=== PATIENT | male | born 1955 | race Caucasian/White ===

== ENCOUNTER 2023-09-30 09:38 | Inpatient (IN) | payer MEDICARE, BC ==
[2023-09-30] MEDS ORDERED: Succinylcholine 200 MG/10 ml SYRINGE FS ONE (09:48)
[2023-09-30] MEDS ORDERED: EPINEPHrine 1 MG/10 ML Abboject SYRINGE ONE (09:48)
[2023-09-30 09:54] LABS: Hematocrit 38.4 % (42.0-52.0); Hemoglobin 12.7 g/dL (14.0-18.0); Mean Corpuscular HGB CONC 33.1 g/dL (32.0-36.0); Mean Corpuscular Hemoglobin 28.3 pg (27.0-31.0); Mean Corpuscular Volume 85.7 fl (78.0-98.0); Mean Platelet Volume 7.9 fL (7.4-10.4); Platelet Count 536 10x3/uL (130-400); RBC Distribution Width 13.5 % (11.5-14.5); Red Blood Cell (RBC) Count 4.48 mill/uL (4.70-6.10); White Blood Cell (WBC) Count 25.6 10x3/uL (4.8-10.8)
[2023-09-30 09:57] LABS: Delete Auto Diff?? YES; Manual Diff?? YES
[2023-09-30 10:17] LABS: ALT (SGPT) 24 U/L (8-55); AST (SGOT) 33 U/L (5-34); Albumin 3.9 g/dL (3.4-4.8); Alkaline Phosphatase 204 U/L (40-110); Anion Gap 18 mmol/L (10-20); BUN (Urea Nitrogen) 19 mg/dL (8.4-25.7); Bilirubin, Total 0.2 mg/dL (0.2-1.2); Calc. Creatinine Clearance 0 mL/min (70-130); Calcium 9.3 mg/dL (7.8-10.44); Carbon Dioxide 22 mmol/L (23-31); Chloride 94 mmol/L (98-107); Estimated GFR 101; Glucose 268 mg/dL (80-115); Potassium 4.3 mmol/L (3.5-5.1); Protein, Total 6.9 g/dL (5.8-8.1); Sodium 130 mmol/L (136-145)
[2023-09-30] MEDS ORDERED: Propofol 1,000 MG/100 ML VIAL IV ONE (10:17)
[2023-09-30] MEDS ORDERED: Midazolam HCl 2 mg/2 ml Vial ONE (10:19)
[2023-09-30] MEDS ORDERED: PHENYLEPHRINE-NS 100 MCG/ML 10 ML SYRINGE ONE (10:21)
[2023-09-30 10:23] LABS: Troponin I 2.368 ng/mL (< 0.028)
[2023-09-30] MEDS ORDERED: Norepinephrine 4 MG/4 ML VIAL ONE (10:32)
[2023-09-30 10:47] LABS: Band 5 % (5-11); Burr Cells MODERATE= 6-15 cells HPF (0-1); CellaVision Operator ID LAB.GE; Lymphocytes 8 % (21-51); Monocytes 4 % (0-10); Neutrophil 83 % (42-75); Platelet Adequacy Comment Platelets Increased; Polychromasia SLIGHT = 2-3 cells HPF (0-2); Total Cell Count 100
[2023-09-30] MEDS ORDERED: Electrolyte Replacement Protocol 1 EACH IVPB PRN (11:49)
[2023-09-30] MEDS ORDERED: TICAGRELOR 90 MG TABLET PO SCH (12:00)
[2023-09-30] MEDS ORDERED: Dextrose 50% Abboject 50 ML SYRINGE IVP PRN (12:00)
[2023-09-30] MEDS ORDERED: Ventilator Sedation Protocol FS PRN (12:00)
[2023-09-30] MEDS ORDERED: Glucagon 1 MG/ML KIT IM PRN (12:00)
[2023-09-30] MEDS ORDERED: Dextrose 5% in Water 1,000 ML IV PRN (12:00)
[2023-09-30 12:01] LABS: Actual Bicarbonate (HCO3a) 21.3 mEq/L (22-28); Base Excess (BEa) -4.7 mEq/L (-2.0 to +3.0); CO2 Tension 43.1 mmHg (35.0-45.0); Calcium, Ionized (arterial) 1.12 mmol/L (1.12-1.30); Carboxyhemoglobin (COHb) 0.7 gm% (0.0-3.0); Hematocrit-ABG 35 % (42.0-52.0); Hemoglobin (Hb) 11.9 g/dL (14.0-18.0); O2 Tension (PaO2), arterial 394.2 mmHg (> 80.0); pH, Arterial 7.312 (7.35-7.45)
[2023-09-30 12:03] LABS: ALV-art Gradient 264.925 mmHg (0-20); Puncture Site Arterial Line
[2023-09-30] MEDS ORDERED: Fentanyl CADD 100 ML IV SCH (12:15)
[2023-09-30] MEDS ORDERED: Electrolyte Replacement Protocol FS PRN (12:15)
[2023-09-30] MEDS ORDERED: Propofol 1,000 MG/100 ML VIAL IV PRN (12:15)
[2023-09-30] MEDS ORDERED: Fentanyl BOLUS 250 ML IVPB PRN (12:15)
[2023-09-30] MEDS ORDERED: Propofol BOLUS 1,000 MG/100 ML VIAL IV PRN (12:15)
[2023-09-30] MEDS ORDERED: Morphine 2 MG/ML VIAL SLOW IVP PRN (12:15)
[2023-09-30] MEDS ORDERED: Lorazepam 2 MG/ML VIAL SLOW IVP PRN (12:15)
[2023-09-30] MEDS: NOREPINEPHRINE 8 MG/250 ML-D5W 250 ML IVPB PRN (12:18)
[2023-09-30] MEDS: Sodium Chloride 0.9% 1,000 ML IV SCH ×2 (12:22→17:58)
[2023-09-30] MEDS ORDERED: Iopamidol 370 76% 100 ML VIAL ONE (12:59)
[2023-09-30] MEDS: Insulin Regular 300 UNITS/3 ML VIAL SC PRN ×2 (13:04→18:52)
[2023-09-30] MEDS ORDERED: Ipratropium/Albuterol 3 ML NEB NEB PRN (13:56)
[2023-09-30] MEDS ORDERED: Nitroglycerin 0.4 MG TAB (25 Tab Bottle) SL PRN (13:59)
[2023-09-30 14:03] VITALS: BMI 20.9
[2023-09-30] MEDS: Lorazepam 2 MG/ML VIAL SLOW IVP PRN (16:54)
[2023-09-30] MEDS: Nicotine 21 MG PATCH TD SCH (16:55)
[2023-09-30] MEDS: TICAGRELOR 90 MG TABLET PO SCH (21:05)
[2023-09-30] MEDS: Atorvastatin Calcium 40 MG TAB PO SCH (21:09)
[2023-09-30] MEDS: QUEtiapine 25 MG TAB PO SCH (21:09)
[2023-10-01 03:42] LABS: #Basophils 0.1 thou/uL (0.0-0.2); #Monocytes 1.2 thou/uL (0.11-0.59); #Neutrophils 18.5 thou/uL (1.40-6.50); %Basophils 0.3 % (0.0-1.0); %Lymphocytes 3.9 % (21.0-51.0); %Monocytes 5.4 % (0.0-10.0); %Neutrophils 86.8 % (42.0-75.0); Hematocrit 33.3 % (42.0-52.0); Mean Corpuscular Hemoglobin 28.6 pg (27.0-31.0); Mean Corpuscular Volume 86.5 fl (78.0-98.0); Platelet Count 450 10x3/uL (130-400); RBC Distribution Width 13.8 % (11.5-14.5); Red Blood Cell (RBC) Count 3.85 mill/uL (4.70-6.10); White Blood Cell (WBC) Count 21.3 10x3/uL (4.8-10.8)
[2023-10-01 03:51] LABS: Hemoglobin A1c 7.8 % (4.0-6.0)
[2023-10-01 04:06] LABS: ALT (SGPT) 23 U/L (8-55); AST (SGOT) 34 U/L (5-34); Albumin 3.1 g/dL (3.4-4.8); Alkaline Phosphatase 183 U/L (40-110); Anion Gap 21 mmol/L (10-20); BUN (Urea Nitrogen) 19 mg/dL (8.4-25.7); Bilirubin, Total 0.2 mg/dL (0.2-1.2); Calc. Creatinine Clearance 85 mL/min (70-130); Calcium 8.4 mg/dL (7.8-10.44); Carbon Dioxide 19 mmol/L (23-31); Chloride 101 mmol/L (98-107); Cholesterol 133 mg/dl (< 200 Desired); Estimated GFR 99; Globulin 2.7 g/dL (2.4-3.5); Glucose 217 mg/dL (80-115); HDL Cholesterol 45 mg/dL (>60 Neg Risk); LDL Cholesterol, Calculated 67 mg/dL; Potassium 4.1 mmol/L (3.5-5.1); Protein, Total 5.8 g/dL (5.8-8.1); Sodium 137 mmol/L (136-145)
[2023-10-01 06:39] LABS: Triglycerides 94 mg/dL (Less than 150)
[2023-10-01] MEDS ORDERED: Cefepime 2 GM in Sodium Chloride 0.9% 100 ML IVPB SCH (09:00)
[2023-10-01] MEDS: TICAGRELOR 90 MG TABLET PO SCH ×2 (09:14→21:31)
[2023-10-01] MEDS: Aspirin Chewable 81 MG TAB PO SCH (09:15)
[2023-10-01] MEDS: Cefepime 2 GM in Sodium Chloride 0.9% 100 ML IVPB SCH ×2 (10:59→18:06)
[2023-10-01] MEDS: Insulin Regular 300 UNITS/3 ML VIAL SC PRN (12:22)
[2023-10-01] MEDS ORDERED: Nicotine 21 MG PATCH TD SCH (16:00)
[2023-10-01] MEDS ORDERED: methylPREDNISolone Sod Succ 40 MG VIAL IVP SCH (18:00)
[2023-10-01] MEDS: methylPREDNISolone Sod Succ 40 MG VIAL IVP SCH (18:06)
[2023-10-01] MEDS: Nicotine 21 MG PATCH TD SCH (18:06)
[2023-10-01] MEDS: Lorazepam 2 MG/ML VIAL SLOW IVP PRN (19:34)
[2023-10-01] MEDS: Ipratropium/Albuterol 3 ML NEB NEB SCH (19:47)
[2023-10-01] MEDS: Mometasone 200 MCG/Formoterol 5 MCG 120 PUFF INHALER INH SCH (19:48)
[2023-10-01] MEDS: Amiodarone 450 MG, Admixture Fee 1 EACH in Dextrose 5% in Water 250 ML IVPB SCH (21:18)
[2023-10-01] MEDS: Atorvastatin Calcium 40 MG TAB PO SCH (21:30)
[2023-10-01] MEDS: QUEtiapine 25 MG TAB PO SCH (21:30)
[2023-10-01] MEDS: guaiFENesin/DM ER PO SCH (21:32)
[2023-10-01] MEDS: NOREPINEPHRINE 8 MG/250 ML-D5W 250 ML IVPB PRN (23:34)
[2023-10-02] MEDS: methylPREDNISolone Sod Succ 40 MG VIAL IVP SCH ×4 (00:45→18:03)
[2023-10-02] MEDS: Insulin Regular 300 UNITS/3 ML VIAL SC PRN ×5 (01:23→21:58)
[2023-10-02] MEDS: Cefepime 2 GM in Sodium Chloride 0.9% 100 ML IVPB SCH ×3 (02:54→18:04)
[2023-10-02] MEDS ORDERED: Ipratropium/Albuterol 3 ML NEB ONE (03:17)
[2023-10-02] MEDS: Lorazepam 2 MG/ML VIAL SLOW IVP PRN (03:54)
[2023-10-02 04:29] LABS: #Monocytes 0.7 thou/uL (0.11-0.59); #Neutrophils 18.1 thou/uL (1.40-6.50); %Basophils 0.2 % (0.0-1.0); %Lymphocytes 2.6 % (21.0-51.0); %Monocytes 3.6 % (0.0-10.0); %Neutrophils 89.3 % (42.0-75.0); Hematocrit 34.7 % (42.0-52.0); Hemoglobin 11.3 g/dL (14.0-18.0); Mean Corpuscular HGB CONC 32.6 g/dL (32.0-36.0); Mean Corpuscular Hemoglobin 28.2 pg (27.0-31.0); Mean Corpuscular Volume 86.5 fl (78.0-98.0); Mean Platelet Volume 8.2 fL (7.4-10.4); Platelet Count 543 10x3/uL (130-400); RBC Distribution Width 14.1 % (11.5-14.5); Red Blood Cell (RBC) Count 4.01 mill/uL (4.70-6.10); White Blood Cell (WBC) Count 20.3 10x3/uL (4.8-10.8)
[2023-10-02 04:54] LABS: Anion Gap 24 mmol/L (10-20); BUN (Urea Nitrogen) 30 mg/dL (8.4-25.7); Calc. Creatinine Clearance 60 mL/min (70-130); Calcium 9.1 mg/dL (7.8-10.44); Carbon Dioxide 18 mmol/L (23-31); Chloride 106 mmol/L (98-107); Estimated GFR 77; Glucose 310 mg/dL (80-115); Potassium 4.4 mmol/L (3.5-5.1); Sodium 144 mmol/L (136-145)
[2023-10-02] MEDS: Mometasone 200 MCG/Formoterol 5 MCG 120 PUFF INHALER INH SCH ×2 (07:25→18:35)
[2023-10-02] MEDS: Ipratropium/Albuterol 3 ML NEB NEB SCH ×4 (07:25→18:35)
[2023-10-02] MEDS: Amiodarone 450 MG, Admixture Fee 1 EACH in Dextrose 5% in Water 250 ML IVPB SCH (07:33)
[2023-10-02] MEDS: TICAGRELOR 90 MG TABLET PO SCH ×2 (09:06→20:05)
[2023-10-02] MEDS: guaiFENesin/DM ER PO SCH ×2 (09:06→20:07)
[2023-10-02] MEDS: Aspirin Chewable 81 MG TAB PO SCH (09:06)
[2023-10-02] MEDS: Nicotine 21 MG PATCH TD SCH (18:03)
[2023-10-02] MEDS ORDERED: Acetaminophen 325 MG TAB ONE (20:00)
[2023-10-02] MEDS: QUEtiapine 25 MG TAB PO SCH (20:05)
[2023-10-02] MEDS: Atorvastatin Calcium 40 MG TAB PO SCH (20:06)
[2023-10-02] MEDS ORDERED: Ketorolac Tromethamine 30 MG/ML VIAL IVP SCH (21:30)
[2023-10-03] MEDS: methylPREDNISolone Sod Succ 40 MG VIAL IVP SCH ×5 (00:28→22:32)
[2023-10-03] MEDS: Cefepime 2 GM in Sodium Chloride 0.9% 100 ML IVPB SCH ×3 (00:29→18:22)
[2023-10-03] MEDS ORDERED: Ipratropium/Albuterol 3 ML NEB NEB PRN (02:54)
[2023-10-03 04:58] LABS: Hematocrit 33.6 % (42.0-52.0); Mean Corpuscular HGB CONC 32.7 g/dL (32.0-36.0); Mean Corpuscular Hemoglobin 28.4 pg (27.0-31.0); Mean Corpuscular Volume 86.6 fl (78.0-98.0); Mean Platelet Volume 8.1 fL (7.4-10.4); Platelet Count 509 10x3/uL (130-400); RBC Distribution Width 14.2 % (11.5-14.5); Red Blood Cell (RBC) Count 3.88 mill/uL (4.70-6.10); White Blood Cell (WBC) Count 19.2 10x3/uL (4.8-10.8)
[2023-10-03] MEDS: Ipratropium/Albuterol 3 ML NEB NEB SCH ×4 (05:10→18:58)
[2023-10-03 05:17] LABS: Delete Auto Diff?? YES; Manual Diff?? YES
[2023-10-03 05:24] LABS: Anion Gap 16 mmol/L (10-20); BUN (Urea Nitrogen) 35 mg/dL (8.4-25.7); Calc. Creatinine Clearance 73 mL/min (70-130); Calcium 9.5 mg/dL (7.8-10.44); Carbon Dioxide 24 mmol/L (23-31); Chloride 108 mmol/L (98-107); Estimated GFR 94; Glucose 271 mg/dL (80-115); Potassium 4.1 mmol/L (3.5-5.1); Sodium 144 mmol/L (136-145)
[2023-10-03 05:46] LABS: Band 4 % (5-11); Burr Cells SLIGHT = 2-5 cells HPF (0-1); CellaVision Operator ID lab.abc; Lymphocytes 3 % (21-51); Metamyelocyte 1 % (0-0); Monocytes 4 % (0-10); Neutrophil 88 % (42-75); Platelet Adequacy Comment Platelets Increased; Poikilocytosis SLIGHT = 6-15 cells HPF (0-5); Total Cell Count 100
[2023-10-03] MEDS: Insulin Regular 300 UNITS/3 ML VIAL SC PRN ×3 (06:19→18:22)
[2023-10-03] MEDS: Mometasone 200 MCG/Formoterol 5 MCG 120 PUFF INHALER INH SCH ×2 (07:30→18:58)
[2023-10-03] MEDS: guaiFENesin/DM ER PO SCH ×2 (09:55→22:31)
[2023-10-03] MEDS: TICAGRELOR 90 MG TABLET PO SCH (09:55)
[2023-10-03] MEDS: Aspirin Chewable 81 MG TAB PO SCH (09:55)
[2023-10-03] MEDS ORDERED: traMADol HCl 50 MG TAB PO PRN (12:14)
[2023-10-03] MEDS ORDERED: traMADol HCl 50 MG TAB PO SCH (12:15)
[2023-10-03] MEDS ORDERED: Carvedilol 3.125 MG TAB PO SCH (14:00)
[2023-10-03] MEDS: Acetaminophen 325 MG TAB PO PRN ×2 (14:21→22:29)
[2023-10-03] MEDS: Nicotine 21 MG PATCH TD SCH (18:22)
[2023-10-03] MEDS: metFORMIN 500 MG TAB PO SCH (18:22)
[2023-10-03] MEDS: Atorvastatin Calcium 40 MG TAB PO SCH (22:30)
[2023-10-03] MEDS: Amiodarone 200 MG TAB PO SCH (22:30)
[2023-10-03] MEDS: Apixaban 5 MG TAB PO SCH (22:31)
[2023-10-03] MEDS: QUEtiapine 25 MG TAB PO SCH (22:32)
[2023-10-04] MEDS: Cefepime 2 GM in Sodium Chloride 0.9% 100 ML IVPB SCH ×3 (01:52→17:35)
[2023-10-04 04:13] LABS: #Monocytes 0.3 thou/uL (0.11-0.59); #Neutrophils 16.5 thou/uL (1.40-6.50); %Basophils 0.1 % (0.0-1.0); %Lymphocytes 2.4 % (21.0-51.0); %Monocytes 1.5 % (0.0-10.0); %Neutrophils 91.8 % (42.0-75.0); Hematocrit 30.9 % (42.0-52.0); Hemoglobin 10.1 g/dL (14.0-18.0); Mean Corpuscular HGB CONC 32.7 g/dL (32.0-36.0); Mean Corpuscular Hemoglobin 28.6 pg (27.0-31.0); Mean Corpuscular Volume 87.5 fl (78.0-98.0); Mean Platelet Volume 8.4 fL (7.4-10.4); Platelet Count 423 10x3/uL (130-400); RBC Distribution Width 14.6 % (11.5-14.5); Red Blood Cell (RBC) Count 3.53 mill/uL (4.70-6.10)
[2023-10-04 04:45] LABS: Anion Gap 14 mmol/L (10-20); BUN (Urea Nitrogen) 45 mg/dL (8.4-25.7); Calc. Creatinine Clearance 75 mL/min (70-130); Calcium 8.9 mg/dL (7.8-10.44); Carbon Dioxide 24 mmol/L (23-31); Chloride 105 mmol/L (98-107); Estimated GFR 94; Glucose 327 mg/dL (80-115); Potassium 4.5 mmol/L (3.5-5.1); Sodium 138 mmol/L (136-145)
[2023-10-04] MEDS: Ipratropium/Albuterol 3 ML NEB NEB SCH ×4 (07:35→18:43)
[2023-10-04] MEDS: Mometasone 200 MCG/Formoterol 5 MCG 120 PUFF INHALER INH SCH ×2 (07:37→18:45)
[2023-10-04] MEDS ORDERED: Insulin Glargine 30 UNITS/0.3 ML VIAL SC SCH (09:00)
[2023-10-04] MEDS: methylPREDNISolone Sod Succ 40 MG VIAL IVP SCH ×3 (09:03→17:34)
[2023-10-04] MEDS: Amiodarone 200 MG TAB PO SCH (09:07)
[2023-10-04] MEDS: Aspirin Chewable 81 MG TAB PO SCH (09:07)
[2023-10-04] MEDS: guaiFENesin/DM ER PO SCH ×2 (09:07→21:10)
[2023-10-04] MEDS: Clopidogrel Bisulfate 75 MG TAB PO SCH (09:07)
[2023-10-04] MEDS: metFORMIN 500 MG TAB PO SCH ×2 (09:08→17:34)
[2023-10-04] MEDS: Carvedilol 3.125 MG TAB PO SCH ×2 (09:08→16:19)
[2023-10-04] MEDS: Apixaban 5 MG TAB PO SCH ×2 (09:08→21:10)
[2023-10-04] MEDS: Alogliptin 6.25 MG TAB PO SCH (09:08)
[2023-10-04] MEDS: Insulin Regular 300 UNITS/3 ML VIAL SC PRN ×2 (11:40→17:36)
[2023-10-04] MEDS: Nicotine 21 MG PATCH TD SCH (17:34)
[2023-10-04] MEDS: Acetaminophen 325 MG TAB PO PRN (21:04)
[2023-10-04] MEDS: QUEtiapine 25 MG TAB PO SCH (21:10)
[2023-10-04] MEDS: Atorvastatin Calcium 40 MG TAB PO SCH (21:10)
[2023-10-05] MEDS: Cefepime 2 GM in Sodium Chloride 0.9% 100 ML IVPB SCH ×3 (02:21→17:13)
[2023-10-05] MEDS: methylPREDNISolone Sod Succ 40 MG VIAL IVP SCH ×4 (02:22→17:13)
[2023-10-05] MEDS: Benzonatate 100 MG CAP PO PRN ×3 (06:42→21:15)
[2023-10-05] MEDS: Ipratropium/Albuterol 3 ML NEB NEB SCH ×4 (07:28→20:39)
[2023-10-05] MEDS: Mometasone 200 MCG/Formoterol 5 MCG 120 PUFF INHALER INH SCH ×2 (07:29→20:36)
[2023-10-05] MEDS: Clopidogrel Bisulfate 75 MG TAB PO SCH (07:53)
[2023-10-05] MEDS: Carvedilol 3.125 MG TAB PO SCH (07:53)
[2023-10-05] MEDS: Alogliptin 6.25 MG TAB PO SCH (07:53)
[2023-10-05] MEDS: metFORMIN 500 MG TAB PO SCH ×2 (07:53→17:12)
[2023-10-05] MEDS: guaiFENesin/DM ER PO SCH ×2 (07:54→21:14)
[2023-10-05] MEDS: Amiodarone 200 MG TAB PO SCH (07:54)
[2023-10-05] MEDS: Apixaban 5 MG TAB PO SCH ×2 (07:54→21:15)
[2023-10-05] MEDS: Insulin Glargine 30 UNITS/0.3 ML VIAL SC SCH (07:54)
[2023-10-05] MEDS: Acetaminophen 325 MG TAB PO PRN ×3 (08:58→21:14)
[2023-10-05] MEDS ORDERED: Furosemide 40 MG/4 ML VIAL SLOW IVP SCH (09:45)
[2023-10-05] MEDS ORDERED: Metolazone 5 MG TAB PO SCH (09:45)
[2023-10-05] MEDS: Insulin Regular 300 UNITS/3 ML VIAL SC PRN (11:18)
[2023-10-05 14:22] LABS: SARS-CoV-2 NAA Rapid Test Not Detected (NotDetected)
[2023-10-05] MEDS: Furosemide 40 MG/4 ML VIAL SLOW IVP SCH (15:00)
[2023-10-05] MEDS: Nicotine 21 MG PATCH TD SCH (17:13)
[2023-10-05] MEDS: Atorvastatin Calcium 40 MG TAB PO SCH (21:15)
[2023-10-05] MEDS: QUEtiapine 25 MG TAB PO SCH (21:15)
[2023-10-06] MEDS: methylPREDNISolone Sod Succ 40 MG VIAL IVP SCH ×3 (03:04→10:59)
[2023-10-06] MEDS: Cefepime 2 GM in Sodium Chloride 0.9% 100 ML IVPB SCH ×2 (03:37→08:48)
[2023-10-06] MEDS: Ipratropium/Albuterol 3 ML NEB NEB SCH ×4 (05:51→18:45)
[2023-10-06] MEDS: Mometasone 200 MCG/Formoterol 5 MCG 120 PUFF INHALER INH SCH ×2 (05:52→18:45)
[2023-10-06] MEDS: Furosemide 40 MG/4 ML VIAL SLOW IVP SCH ×2 (05:54→13:20)
[2023-10-06] MEDS: Benzonatate 100 MG CAP PO PRN ×4 (05:54→20:29)
[2023-10-06] MEDS: Insulin Glargine 30 UNITS/0.3 ML VIAL SC SCH (08:48)
[2023-10-06] MEDS: Apixaban 5 MG TAB PO SCH ×2 (08:49→20:29)
[2023-10-06] MEDS: Clopidogrel Bisulfate 75 MG TAB PO SCH (08:49)
[2023-10-06] MEDS: Amiodarone 200 MG TAB PO SCH (08:49)
[2023-10-06] MEDS: Insulin Regular 300 UNITS/3 ML VIAL SC PRN ×2 (08:49→10:59)
[2023-10-06] MEDS: guaiFENesin/DM ER PO SCH ×2 (08:49→20:28)
[2023-10-06] MEDS: metFORMIN 500 MG TAB PO SCH ×2 (08:49→17:06)
[2023-10-06] MEDS: Alogliptin 6.25 MG TAB PO SCH (08:49)
[2023-10-06] MEDS ORDERED: Metolazone 5 MG TAB PO SCH (10:00)
[2023-10-06] MEDS ORDERED: Insulin Glargine 30 UNITS/0.3 ML VIAL SC SCH (11:15)
[2023-10-06 13:19] LABS: #Monocytes 0.5 thou/uL (0.11-0.59); #Neutrophils 17.1 thou/uL (1.40-6.50); %Basophils 0.2 % (0.0-1.0); %Lymphocytes 1.5 % (21.0-51.0); %Monocytes 2.6 % (0.0-10.0); %Neutrophils 94.1 % (42.0-75.0); Hematocrit 32.7 % (42.0-52.0); Hemoglobin 10.6 g/dL (14.0-18.0); Mean Corpuscular HGB CONC 32.4 g/dL (32.0-36.0); Mean Corpuscular Hemoglobin 28.3 pg (27.0-31.0); Mean Corpuscular Volume 87.2 fl (78.0-98.0); Mean Platelet Volume 8.8 fL (7.4-10.4); Platelet Count 347 10x3/uL (130-400); RBC Distribution Width 14.2 % (11.5-14.5); Red Blood Cell (RBC) Count 3.75 mill/uL (4.70-6.10); White Blood Cell (WBC) Count 18.1 10x3/uL (4.8-10.8)
[2023-10-06] MEDS: Nicotine 21 MG PATCH TD SCH (17:07)
[2023-10-06] MEDS: Cefdinir 300 MG CAP PO SCH (20:27)
[2023-10-06] MEDS: Atorvastatin Calcium 40 MG TAB PO SCH (20:29)
[2023-10-06] MEDS: QUEtiapine 25 MG TAB PO SCH (20:29)
[2023-10-07] MEDS: Furosemide 40 MG/4 ML VIAL SLOW IVP SCH ×2 (05:37→15:17)
[2023-10-07] MEDS: Mometasone 200 MCG/Formoterol 5 MCG 120 PUFF INHALER INH SCH ×2 (08:08→19:42)
[2023-10-07] MEDS: Ipratropium/Albuterol 3 ML NEB NEB SCH ×4 (08:11→19:41)
[2023-10-07 08:12] LABS: #Basophils 0.1 thou/uL (0.0-0.2); #Monocytes 1.1 thou/uL (0.11-0.59); #Neutrophils 25.6 thou/uL (1.40-6.50); %Basophils 0.3 % (0.0-1.0); %Eosinophils 0.1 % (0.0-10.0); %Neutrophils 92.1 % (42.0-75.0); Hematocrit 34.2 % (42.0-52.0); Hemoglobin 11.2 g/dL (14.0-18.0); Mean Corpuscular HGB CONC 32.7 g/dL (32.0-36.0); Mean Corpuscular Hemoglobin 28.5 pg (27.0-31.0); Mean Platelet Volume 9.1 fL (7.4-10.4); Platelet Count 361 10x3/uL (130-400); RBC Distribution Width 14.2 % (11.5-14.5); Red Blood Cell (RBC) Count 3.93 mill/uL (4.70-6.10); White Blood Cell (WBC) Count 27.8 10x3/uL (4.8-10.8)
[2023-10-07 08:33] LABS: Manual Diff?? YES
[2023-10-07] MEDS ORDERED: Insulin Glargine 30 UNITS/0.3 ML VIAL SC SCH (09:00)
[2023-10-07] MEDS ORDERED: Metolazone 5 MG TAB PO SCH (09:30)
[2023-10-07] MEDS: Apixaban 5 MG TAB PO SCH ×2 (09:41→21:18)
[2023-10-07] MEDS: predniSONE 20 MG TAB PO SCH (09:41)
[2023-10-07] MEDS: Cefdinir 300 MG CAP PO SCH ×2 (09:41→21:18)
[2023-10-07] MEDS: Clopidogrel Bisulfate 75 MG TAB PO SCH (09:41)
[2023-10-07] MEDS: metFORMIN 500 MG TAB PO SCH ×2 (09:42→16:55)
[2023-10-07] MEDS: guaiFENesin/DM ER PO SCH ×2 (09:42→21:18)
[2023-10-07] MEDS: Amiodarone 200 MG TAB PO SCH (09:42)
[2023-10-07] MEDS: Alogliptin 6.25 MG TAB PO SCH (09:42)
[2023-10-07 10:07] LABS: Band 15 % (5-11); CellaVision Operator ID LAB.GE; Lymphocytes 2 % (21-51); Monocytes 1 % (0-10); Neutrophil 82 % (42-75); Platelet Adequacy Comment Platelets Normal; Polychromasia SLIGHT = 2-3 cells HPF (0-2); Total Cell Count 101
[2023-10-07] MEDS: Benzonatate 100 MG CAP PO PRN ×2 (15:17→21:25)
[2023-10-07] MEDS: Nicotine 21 MG PATCH TD SCH (16:55)
[2023-10-07] MEDS: Insulin Regular 300 UNITS/3 ML VIAL SC PRN (16:55)
[2023-10-07] MEDS: QUEtiapine 25 MG TAB PO SCH (21:18)
[2023-10-07] MEDS: Atorvastatin Calcium 40 MG TAB PO SCH (21:18)
[2023-10-07] MEDS: Acetaminophen 325 MG TAB PO PRN (21:19)
[2023-10-08 05:00] LABS: #Eosinphils 0.1 thou/uL (0.0-0.7); #Monocytes 0.9 thou/uL (0.11-0.59); #Neutrophils 13.4 thou/uL (1.40-6.50); %Basophils 0.2 % (0.0-1.0); %Eosinophils 0.8 % (0.0-10.0); %Monocytes 5.7 % (0.0-10.0); %Neutrophils 86.9 % (42.0-75.0); Hematocrit 30.9 % (42.0-52.0); Mean Corpuscular HGB CONC 32.4 g/dL (32.0-36.0); Mean Corpuscular Hemoglobin 28.1 pg (27.0-31.0); Mean Corpuscular Volume 86.8 fl (78.0-98.0); Mean Platelet Volume 9.2 fL (7.4-10.4); Platelet Count 263 10x3/uL (130-400); RBC Distribution Width 13.9 % (11.5-14.5); Red Blood Cell (RBC) Count 3.56 mill/uL (4.70-6.10); White Blood Cell (WBC) Count 15.4 10x3/uL (4.8-10.8)
[2023-10-08] MEDS: Furosemide 40 MG/4 ML VIAL SLOW IVP SCH ×2 (05:53→13:50)
[2023-10-08] MEDS: Mometasone 200 MCG/Formoterol 5 MCG 120 PUFF INHALER INH SCH ×2 (07:55→18:39)
[2023-10-08] MEDS: Ipratropium/Albuterol 3 ML NEB NEB SCH ×4 (07:56→18:38)
[2023-10-08 08:35] LABS: Anion Gap 14 mmol/L (10-20); BUN (Urea Nitrogen) 37 mg/dL (8.4-25.7); Calc. Creatinine Clearance 66 mL/min (70-130); Calcium 9.1 mg/dL (7.8-10.44); Carbon Dioxide 34 mmol/L (23-31); Chloride 92 mmol/L (98-107); Estimated GFR 92; Glucose 250 mg/dL (80-115); Potassium 4.6 mmol/L (3.5-5.1); Sodium 135 mmol/L (136-145)
[2023-10-08] MEDS: Clopidogrel Bisulfate 75 MG TAB PO SCH (09:28)
[2023-10-08] MEDS: guaiFENesin/DM ER PO SCH ×2 (09:28→20:52)
[2023-10-08] MEDS: metFORMIN 500 MG TAB PO SCH ×2 (09:28→16:45)
[2023-10-08] MEDS: Alogliptin 6.25 MG TAB PO SCH (09:28)
[2023-10-08] MEDS: predniSONE 20 MG TAB PO SCH (09:28)
[2023-10-08] MEDS: Cefdinir 300 MG CAP PO SCH ×2 (09:28→20:52)
[2023-10-08] MEDS: Apixaban 5 MG TAB PO SCH ×2 (09:28→20:52)
[2023-10-08] MEDS: Amiodarone 200 MG TAB PO SCH (09:28)
[2023-10-08] MEDS: Insulin Regular 300 UNITS/3 ML VIAL SC PRN ×3 (11:52→20:58)
[2023-10-08] MEDS: Nicotine 21 MG PATCH TD SCH (16:45)
[2023-10-08 19:33] VITALS: BP 115/54; TEMP 97.5
[2023-10-08] MEDS: Atorvastatin Calcium 40 MG TAB PO SCH (20:52)
[2023-10-08] MEDS: QUEtiapine 25 MG TAB PO SCH (20:52)
== END 2023-10-08 22:10 | DRG 323 ==
LOC: ERS 09:38 → CCL 10:04 → CCU 11:51 → 2NO 10-02 23:16
PROVIDERS: ADMIT Internal Medicine Cardiovascular Disease; ATTEND Internal Medicine
PROC: 4A023N7 Measurement of Cardiac Sampling and Pressure, Left Heart, Percutaneous Approach (ICD-10-PCS; principal; 2023-09-30)
PROC: 027034Z Dilation of Coronary Artery, One Artery with Drug-eluting Intraluminal Device, Percutaneous Approach (ICD-10-PCS; 2023-09-30)
PROC: 02F03ZZ Fragmentation in Coronary Artery, One Artery, Percutaneous Approach (ICD-10-PCS; 2023-09-30)
PROC: B2111ZZ Fluoroscopy of Multiple Coronary Arteries using Low Osmolar Contrast (ICD-10-PCS; 2023-09-30)
PROC: B2151ZZ Fluoroscopy of Left Heart using Low Osmolar Contrast (ICD-10-PCS; 2023-09-30)
PROC: 4A133R1 Monitoring of Arterial Saturation, Peripheral, Percutaneous Approach (ICD-10-PCS; 2023-09-30)
PROC: 3E033XZ Introduction of Vasopressor into Peripheral Vein, Percutaneous Approach (ICD-10-PCS; 2023-09-30)
DX: I21.09 ST elevation (STEMI) myocardial infarction involving other coronary artery of anterior wall (principal); I50.23 Acute on chronic systolic (congestive) heart failure; J18.9 Pneumonia, unspecified organism; J96.01 Acute respiratory failure with hypoxia; E87.1 Hypo-osmolality and hyponatremia; J44.1 Chronic obstructive pulmonary disease with (acute) exacerbation; I42.0 Dilated cardiomyopathy; E11.9 Type 2 diabetes mellitus without complications; E78.5 Hyperlipidemia, unspecified; F17.210 Nicotine dependence, cigarettes, uncomplicated; Z66 Do not resuscitate; I25.10 Atherosclerotic heart disease of native coronary artery without angina pectoris; I11.0 Hypertensive heart disease with heart failure; D72.829 Elevated white blood cell count, unspecified; I48.0 Paroxysmal atrial fibrillation; Z71.6 Tobacco abuse counseling; Z82.49 Family history of ischemic heart disease and other diseases of the circulatory system; Z90.49 Acquired absence of other specified parts of digestive tract; Z79.899 Other long term (current) drug therapy; Z86.16 Personal history of COVID-19; Z11.52 Encounter for screening for COVID-19
CPT/HCPCS: 31500; 36415; 36416; 36556; 71045; 71046; 74230; 80048; 80053; 80061; 82533; 82805; 83036; 83880; 85025; 85347; 86850; 86900; 86901; 87040; 92941; 93005; 93010; 93306; 93458; 93798; 94002; 94640; 94664; 96374; 97139; C1751; C1761; C1769; C1874; C1887; C1894; C9606; J0171; J0282; J0692; J1611; J1815; J1885; J1940; J2060; J2250; J2704; J2920; J3010; J3490; J7050; J7070; J7512; J7620; Q9967